=== PATIENT | male | born 1955 ===

== ENCOUNTER 2017-10-05 17:55 | Inpatient (IN) | payer OTHER ==
[~2017-10-05] VITALS: Ht 172.7 cm; Wt 64.6 kg
[2017-10-05 18:17] VITALS: Ht 172.7 cm; Wt 64.6 kg
[2017-10-05 19:02] LABS: CALCIUM 7.7 mg/dL (8.5-10.1); CARBON DIOXIDE 24.3 mmol/L (21-32); CHLORIDE SERUM 103 mmol/L (98-107); GFR1 > 60 mL/min; GLUCOSE SERUM 116 mg/dL (74-106); POTASSIUM SERUM 3.5 mmol/L (3.5-5.1); SODIUM SERUM 138 mmol/L (136-145)
[2017-10-05 19:07] LABS: ALBUMIN 3.6 g/dL (3.4-5.0); ALKALINE PHOSPHATASE 69 U/L (46-116); ALT/SGPT 52 U/L (16-63); AST/SGOT 56 U/L (15-37); BILIRUBIN TOTAL 0.19 mg/dL (0.20-1.00); LIPASE 132 IU/L (73-393); TOTAL PROTEIN, SERUM 6.9 g/dL (6.4-8.2)
[2017-10-05 19:18] LABS: BASOPHIL % 0.6 % (0-2); PLATELET COUNT 317 x10^3mcL (130-400); RED CELL DISTRIBUTION WIDTH 14.5 % (11.5-14.5)
[2017-10-05 19:51] LABS: microscopic required? NO
[2017-10-05 20:42] LABS: UA SPECIFIC GRAVITY 1.015 (1.005-1.035); urine erythrocyte NEGATIVE (NEGATIVE)
[2017-10-05 20:57] LABS: AMPHETAMINE QUAL UR NONE DETECTED (See below)
[2017-10-05 21:18] LABS: CHOLESTEROL/HDL RATIO 1.8; MAGNESIUM 2.2 mg/dL (1.8-2.4); PHOSPHOROUS 3.5 mg/dL (2.5-4.9)
[2017-10-05 21:28] LABS: FREE T4 1.07 ng/dL (0.76-1.46); FREE THYROXINE INDEX 2.7 ug/dL (1.4-4.5); T4(THYROXINE) 7.4 ug/dL (4.7-13.3)
[2017-10-05 21:49] LABS: T3 TOTAL 0.95 ng/mL
[2017-10-06 04:24] VITALS: BP 121/79
[2017-10-06 06:53] LABS: CALCIUM 7.4 mg/dL (8.5-10.1); CARBON DIOXIDE 23.3 mmol/L (21-32); CHLORIDE SERUM 105 mmol/L (98-107); CREATININE SERUM 0.7 mg/dL (0.7-1.3); GFR1 > 60 mL/min; GLUCOSE SERUM 90 mg/dL (74-106); POTASSIUM SERUM 3.6 mmol/L (3.5-5.1); SODIUM SERUM 144 mmol/L (136-145)
[2017-10-06 06:57] LABS: BASOPHIL % 0.5 % (0-2); PLATELET COUNT 313 x10^3mcL (130-400)
[2017-10-06 06:59] LABS: RED CELL DISTRIBUTION WIDTH 14.6 % (11.5-14.5)
[2017-10-06 08:30] VITALS: BP 115/78
[2017-10-06 13:17] VITALS: BP 139/88
[2017-10-06 18:12] VITALS: BP 93/52
[2017-10-06 18:17] VITALS: BP 133/92
[2017-10-06 19:59] VITALS: BP 148/91
[2017-10-07 04:46] VITALS: BP 147/93
[2017-10-07 06:26] LABS: CARBON DIOXIDE 24.9 mmol/L (21-32); CHLORIDE SERUM 107 mmol/L (98-107); CREATININE SERUM 0.8 mg/dL (0.7-1.3); GFR1 > 60 mL/min; GLUCOSE SERUM 99 mg/dL (74-106); MAGNESIUM 2.2 mg/dL (1.8-2.4); PHOSPHOROUS 2.4 mg/dL (2.5-4.9); POTASSIUM SERUM 4.7 mmol/L (3.5-5.1); SODIUM SERUM 138 mmol/L (136-145)
[2017-10-07 06:49] LABS: BASOPHIL % 0.4 % (0-2); PLATELET COUNT 254 x10^3mcL (130-400); RED CELL DISTRIBUTION WIDTH 14.2 % (11.5-14.5)
[2017-10-07 10:43] VITALS: BP 151/104
[2017-10-07] MEDS ORDERED: ATIVAN1 MG PO (11:30)
[2017-10-07 12:22] VITALS: BP 150/93
[2017-10-07 12:37] VITALS: BP 150/93
== END 2017-10-07 13:25 | disposition home or self-care (01) | DRG 48 ==
LOC: ED 17:55 → DU 20:22
PROVIDERS: Emergency Medicine; Internal Medicine
DX: G90.8 Other disorders of autonomic nervous system (principal); G92 Toxic encephalopathy; E83.51 Hypocalcemia; S02.92XA Unspecified fracture of facial bones, initial encounter for closed fracture; F10.129 Alcohol abuse with intoxication, unspecified; W18.39XA Other fall on same level, initial encounter; E78.5 Hyperlipidemia, unspecified; Y90.9 Presence of alcohol in blood, level not specified; Y93.89 Activity, other specified; Y92.89 Other specified places as the place of occurrence of the external cause; Y99.8 Other external cause status; R55 Syncope and collapse; R74.0 Nonspecific elevation of levels of transaminase and lactic acid dehydrogenase [LDH]
CPT/HCPCS: 83880; 84439; 90715; C9113; G0480; J2060; J3411; J3475; J3490; J7030; Q0092

== ENCOUNTER 2019-11-08 18:44 | Emergency (ER) | payer MEDICAID ==
[~2019-11-08] VITALS: Ht 170.2 cm; Wt 68.0 kg
[~2019-11-08 18:44] MED LIST: ATIVAN1 MG PO
[2019-11-08 19:06] VITALS: BP 128/95; Ht 170.2 cm; Wt 68.0 kg
== END 2019-11-08 19:33 | disposition left against medical advice (07) ==
LOC: ED 18:44
DX: F10.129 Alcohol abuse with intoxication, unspecified (principal); R20.0 Anesthesia of skin; Y90.9 Presence of alcohol in blood, level not specified

== ENCOUNTER 2019-11-08 19:43 | Emergency (ER) | payer MEDICAID ==
[~2019-11-08] VITALS: Ht 172.7 cm; Wt 68.0 kg
[2019-11-08 19:58] VITALS: Ht 172.7 cm; Wt 68.0 kg
[2019-11-08 22:23] VITALS: BP 138/96
== END 2019-11-08 22:20 | disposition home or self-care (01) ==
LOC: ED 19:43
DX: F10.129 Alcohol abuse with intoxication, unspecified (principal); S00.81XA Abrasion of other part of head, initial encounter; R20.0 Anesthesia of skin; J34.89 Other specified disorders of nose and nasal sinuses; X58.XXXA Exposure to other specified factors, initial encounter; Y93.89 Activity, other specified; Y92.89 Other specified places as the place of occurrence of the external cause; Y99.8 Other external cause status; Y90.9 Presence of alcohol in blood, level not specified
CPT/HCPCS: Q0092